=== PATIENT | male | born 1990 | race American Indian/Alaskan Native ===

== ENCOUNTER 2020-10-16 15:33 | Emergency (ER) | payer MEDICAID ==
[2020-10-16 16:15] VITALS: BP 152/82
[2020-10-16] MEDS ORDERED: IBUPROFEN 800 MG TAB PO ONE (16:18)
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
[2020-10-16] MEDS ORDERED: LIDOCAINE (1%) 10 MG/1 ML VIAL 20 ML MDV INFILTRATI NR (16:30)
== END 2020-10-16 19:45 | disposition home or self-care (01) ==
LOC: ED 15:33
DX: S81.811A Laceration without foreign body, right lower leg, initial encounter (principal); J45.909 Unspecified asthma, uncomplicated; G40.909 Epilepsy, unspecified, not intractable, without status epilepticus; Z79.899 Other long term (current) drug therapy; Y08.89XA Assault by other specified means, initial encounter; Y93.89 Activity, other specified; Y92.69 Other specified industrial and construction area as the place of occurrence of the external cause; Y99.8 Other external cause status
CPT/HCPCS: 99282

== ENCOUNTER 2020-12-12 00:34 | Emergency (ER) | payer MEDICAID ==
--- NOTE | 2020-12-12 01:40 | Emergency Department Report ---
ED Psych HPI - General Chief Complaint: Seizure Stated Complaint: HEADACHE Time Seen by Provider: 12/12/20 01:35 Source: patient, EMS Mode of arrival: Ambulatory - History of Present Illness Initial Comments: Patient is a 30-year-old male who presents emergency room with complaints of headache, seizure activity and suicidal thoughts and depression. Patient states his headache started about an hour ago. Patient states headache is severe. Patient states he has history of headaches after a seizure. Patient states he had a seizure approximately an hour ago. Patient states his housemates called EMS. Patient states he is noncompliant with his seizure medication. Patient states he ran out of his [employer] 3 months ago. Patient states his headache is a 10 out of 10. Patient dates is better with rest and worse with light and movement. Patient states she is having a migraine. Patient dates that history of migraines. Patient states she is also having suicidal thoughts. Patient rates want to put a hole in his head. Patient states been feeling depressed for several months. Patient denies recent travel. Patient denies recent international travel. Patient denies exposure to the novel coronavirus. Patient denies sick contacts. Patient denies fever and chills. Patient denies cough. Patient denies diarrhea. Patient denies coming in contact with anybody with symptoms of the novel coronavirus. MD Complaint: suicidal ideation, feels depressed -: Sudden Associated Psychiatric Symptoms: depression, suicidal ideation, racing thoughts History of same: No Quality: constant Improves With: none Worsens With: none Associated Symptoms: headache, other (Seizure) If Self Harm: admits thoughts of, has plan - Related Data Previous Rx's Medication Instructions Recorded Last Taken Type Ibuprofen [Motrin 800 MG tab] 800 mg PO Q8HR PRN #30 tablet 10/16/20 Unknown Rx Mupirocin [Bactroban 2%] 1 applic TP TID #1 tube 12/15/20 Unknown Rx levETIRAcetam [Keppra TAB] 1,000 mg PO BID #60 tab 12/15/20 Unknown Rx Allergies Allergy/AdvReac Type Severity Reaction Status Date / Time No Known Allergies Allergy Unverified 10/16/20 16:10 ED Review of Systems ROS: Stated complaint: HEADACHE Other details as noted in HPI Constitutional: denies: chills, fever Eyes: denies: eye pain, eye discharge, vision change ENT: denies: ear pain, throat pain Respiratory: denies: cough, shortness of breath, wheezing Cardiovascular: denies: chest pain, palpitations Endocrine: no symptoms reported Gastrointestinal: denies: abdominal pain, nausea, diarrhea Genitourinary: denies: urgency, dysuria Musculoskeletal: denies: back pain, joint swelling, arthralgia Skin: denies: rash, lesions Neurological: as per HPI, headache. denies: weakness, paresthesias Psychiatric: as per HPI, depression, suicidal thoughts. denies: anxiety Hematological/Lymphatic: denies: easy bleeding, easy bruising ED Past Medical Hx - Past Medical History Previous Medical History?: Yes Hx Seizures: Yes Hx Asthma: Yes - Surgical History Past Surgical History?: Yes Additional Surgical History: STOMACH - Family History Family history: no significant - Social History Smoking Status: Never Smoker Substance Use Type: Marijuana - Medications Home Medications: Home Medications Medication Instructions Recorded Confirmed Last Taken Type Ibuprofen [Motrin 800 MG tab] 800 mg PO Q8HR PRN #30 tablet 10/16/20 Unknown Rx Mupirocin [Bactroban 2%] 1 applic TP TID #1 tube 12/15/20 Unknown Rx levETIRAcetam [Keppra TAB] 1,000 mg PO BID #60 tab 12/15/20 Unknown Rx ED Physical Exam - General Limitations: No Limitations General appearance: alert, in no apparent distress - Head Head exam: Present: atraumatic, normocephalic - Eye Eye exam: Present: normal appearance, PERRL Pupils: Present: normal accommodation - ENT ENT exam: Present: mucous membranes moist - Neck Neck exam: Present: normal inspection - Respiratory Respiratory exam: Present: normal lung sounds bilaterally. Absent: respiratory distress - Cardiovascular Cardiovascular Exam: Present: regular rate, normal rhythm. Absent: systolic murmur, diastolic murmur, rubs, gallop - GI/Abdominal GI/Abdominal exam: Present: soft, normal bowel sounds - Rectal Rectal exam: Present: deferred - Extremities Exam Extremities exam: Present: normal inspection - Back Exam Back exam: Present: normal inspection - Neurological Exam Neurological exam: Present: alert, oriented X3, CN II-XII intact - Psychiatric Psychiatric exam: Present: depressed, suicidal ideation - Skin Skin exam: Present: warm, dry, intact, normal color. Absent: rash ED Course Vital Signs 12/12/20 12/12/20 12/12/20 00:52 01:34 01:42 Temperature 98.3 F Pulse Rate 83 Respiratory 18 18 Rate Blood Pressure 131/82 Blood Pressure [Right] O2 Sat by Pulse 95 94 98 Oximetry 12/12/20 12/12/20 12/12/20 02:00 03:00 03:33 Temperature Pulse Rate 75 Respiratory 15 13 18 Rate Blood Pressure 116/71 105/61 Blood Pressure [Right] O2 Sat by Pulse 97 99 Oximetry 12/12/20 12/12/20 12/12/20 04:00 04:03 05:00 Temperature Pulse Rate 63 Respiratory 12 18 11 L Rate Blood Pressure 114/74 107/62 Blood Pressure [Right] O2 Sat by Pulse 99 99 Oximetry 12/12/20 12/12/20 12/12/20 06:01 07:00 20:21 Temperature 97.6 F Pulse Rate 54 L 56 L Respiratory 9 L 18 Rate Blood Pressure 114/74 121/79 Blood Pressure 127/89 [Right] O2 Sat by Pulse 98 96 100 Oximetry 12/12/20 12/13/20 12/13/20 20:22 03:55 08:50 Temperature 97.8 F Pulse Rate 68 Respiratory 18 18 18 Rate Blood Pressure Blood Pressure 119/76 [Right] O2 Sat by Pulse 100 98 98 Oximetry 12/13/20 12/13/20 12/14/20 20:00 21:43 08:27 Temperature 97.9 F 97.9 F Pulse Rate 67 78 Respiratory 18 18 20 Rate Blood Pressure 142/88 Blood Pressure 123/74 [Right] O2 Sat by Pulse 99 97 Oximetry 12/14/20 12/15/20 12/15/20 20:06 00:06 02:01 Temperature 97.8 F 97.6 F Pulse Rate 64 16 L Respiratory 16 18 16 Rate Blood Pressure Blood Pressure 112/72 121/87 [Right] O2 Sat by Pulse 100 97 100 Oximetry 12/15/20 08:00 Temperature 97.6 F Pulse Rate 70 Respiratory 18 Rate Blood Pressure Blood Pressure 140/78 [Right] O2 Sat by Pulse 98 Oximetry - Reevaluation(s) Reevaluation #1: Patient placed on 1013. 12/12/20 01:40 Reevaluation #2: Patient resting in his room. Patient states his headache has improved. Patient is medically cleared. Patient will remain in the ER as an ER hold until the patient is cleared by our psychiatry team. Patient final disposition will come from our psychiatry mental health team. 12/12/20 04:19 ED Medical Decision Making - Lab Data Result diagrams: 12/12/20 01:24 12/12/20 01:24 - Medical Decision Making Patient is a 30-year-old male who presents emergency with seizure activity, headache and complaints of suicidal ideations. Patient states he has a plan. Patient has a known seizure history and is noncompliant with his seizure medications. Patient given Keppra. Patient given Toradol and Phenergan and the patient's headache improved. Patient is medically cleared. Patient had labs done which were essentially unremarkable. Patient final disposition will come from our psychiatry team. - Differential Diagnosis Seizure, headache, migraine, noncompliance, suicidal ideations. Critical care attestation.: If time is entered above; I have spent that time in minutes in the direct care of this critically ill patient, excluding procedure time. ED Disposition Clinical Impression: Seizure, Noncompliance Headache Qualifiers: Headache type: unspecified Headache chronicity pattern: acute headache Intractability: not intractable Qualified Code(s): R51.9 - Headache, unspecified Wound of right leg Qualifiers: Encounter type: subsequent encounter Qualified Code(s): S81.801D - Unspecified open wound, right lower leg, subsequent encounter Disposition: TO HOME OR SELFCARE Is pt being admited?: No Does the pt Need Aspirin: No Condition: Good Instructions: Wound Care, Adult, Seizure, Adult Additional Instructions: Recommend the patient not drive or operate motor vehicles for 6 months, until cleared to do so by a primary care doctor or neurologist. Recommend follow-up with a primary care doctor or neurologist within the next week. Recommend that patient wash right lower extremity wound with gentle soap and water once every 12-24 hours. Apply warm compresses as often as as needed. Apply the Bactroban ointment as directed. Take the Keppra medication as directed. Follow-up with your outpatient mental health professional or psychiatrist as instructed. Please continue outpatient psychiatric medications as directed by our psychiatry team. Please return to the emergency room right away with new pain, worsened pain, migration of pain, projectile vomiting, change in mental status, confusion, inability to tolerate liquid feeds, new, worsened or different symptoms not present on the initial emergency room evaluation. Prescriptions: Mupirocin [Bactroban 2%] 1 applic TP TID #1 tube levETIRAcetam [Keppra TAB] 1,000 mg PO BID #60 tab Referrals: [facility] [Provider Group] - 3-5 Days [facility] [Outside] - 3-5 Days RADHA PATEL MD [Staff Physician] - 3-5 Days Time of Disposition: 05:30
[2020-12-12 02:00] LABS: BUN/Creatinine Ratio 11; Blood Urea Nitrogen 13 mg/dL (9-20); Calcium 9.2 mg/dL (8.4-10.2); Hemolysis Index 5
[2020-12-12 02:07] LABS: Bilirubin,Urine NEG (Negative); Blood,Urine NEG (Negative); Color,Urine Yellow (Yellow); Protein,Urine <15 mg/dL mg/dL (Negative); RBC,Urine < 1.0 /HPF (0.0-6.0); WBC,Urine < 1.0 /HPF (0.0-6.0)
[2020-12-12 02:09] LABS: Amphetamine Screen,Urine PRESUMPTIVE NEGATIVE; Benzodiazepines Screen,Urine PRESUMPTIVE NEGATIVE; Cannabinoid Screen,Urine PRESUMPTIVE POSITIVE; Cocaine Screen,Urine PRESUMPTIVE NEGATIVE; Methadone Screen,Urine PRESUMPTIVE NEGATIVE; Opiate Screen,Urine PRESUMPTIVE NEGATIVE
[2020-12-12 02:10] LABS: Basophils # (Auto) 0.1 K/mm3 (0.0-0.1); Eosinophils # (Auto) 0.1 K/mm3 (0.0-0.4); Eosinophils % (Auto) 0.8 % (0.0-4.3); Monocytes # (Auto) 1.1 K/mm3 (0.0-0.8); Monocytes % (Auto) 12.2 % (0.0-7.3)
[2020-12-12 02:53] LABS: Hematocrit 38.3 % (35.5-45.6); Hemoglobin 12.2 gm/dl (11.8-15.2); Red Blood Count 5.64 M/mm3 (3.65-5.03)
[2020-12-12 02:54] LABS: Basophils % (Auto) 0.7 % (0.0-1.8); Lymphocytes % (Auto) 42.4 % (13.4-35.0); Mean Corpuscular HGB Conc 32 % (32-34); Mean Corpuscular Volume 68 fl (84-94); Platelet Count 376 K/mm3 (140-440); Red Cell Distribution Width 18.8 % (13.2-15.2)
[2020-12-12] MEDS ORDERED: KETOROLAC 30 MG/1 ML INJ IV ONE (03:01)
[2020-12-12] MEDS ORDERED: PROMETHAZINE 25 MG TAB PO ONE (03:01)
[2020-12-12] MEDS ORDERED: levETIRAcetam 1000 MG/NS 0.75% 1,000 MG/100 ML BAG IV ONE (03:01)
[2020-12-12] MEDS ORDERED: ZIPRASIDONE MESYLATE 20 MG VIAL IM ONE (04:17)
[2020-12-12] MEDS ORDERED: WATER FOR INJ Sterile (PF) 10 ML ONE (04:19)
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
--- NOTE | 2020-12-13 10:27 | Emergency Department Report ---
Blank Doc - Documentation Documentation: I saw this patient back in room #12, in the psychiatric area. He is currently here for suicidal ideations, depression, and seizure-like activity yesterday. He was given a loading dose of Keppra by the emergency physician at that time. The patient says that he takes Keppra 1000 mg twice daily so I am restarting this medication for him. He also complains of a small wound to the right lower leg. He says that there was some yellowish drainage from it yesterday and he had concern for infection. I do see a small ulcerating wound to the right mid anterior tib-fib. No current drainage and no surrounding erythema. However, he would be placed on a short course of antibiotics. We discussed keeping it clean with soap and water and then making sure it remains dry. He was seen today by the psychiatric midlevel provider and they recommend continuation of the 1013 for inpatient stabilization. Patient says that he is on Seroquel at night 400 mg. I am waiting to see what medications are started by the psychiatric team. No events overnight signed out to the emergency department psychiatric nurse. No new labs ordered today. Patient's Covid test was negative yesterday. He is awaiting placement and we will continue to monitor. Vital Signs - 24 hr 12/12/20 12/12/20 12/13/20 20:21 20:22 03:55 Temperature 97.6 F Pulse Rate 56 L Respiratory 18 18 18 Rate Blood Pressure 127/89 [Right] O2 Sat by Pulse 100 100 98 Oximetry 12/13/20 08:50 Temperature 97.8 F Pulse Rate 68 Respiratory 18 Rate Blood Pressure 119/76 [Right] O2 Sat by Pulse 98 Oximetry
[2020-12-13] MEDS: levETIRAcetam 500 MG TAB PO SCH ×2 (12:59→21:45)
[2020-12-13] MEDS: SULFAMETHOXAZOLE/TRIMETHOPRIM 800/160MG DS TAB PO SCH ×2 (12:59→21:45)
[2020-12-13] MEDS ORDERED: LORazepam 1 MG TAB PO ONE (21:25)
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
--- NOTE | 2020-12-14 10:00 | Emergency Department Report ---
Blank Doc - Documentation Documentation: Patient is here for depression and suicidal ideations. He was seen again today by the psychiatric team who continue to feel that the patient requires inpatient stabilization. He has been started on Seroquel 100 mg twice daily by the psychiatric midlevel provider. The emergency department psychiatric nurse says that there have been no events overnight that were signed out to her. He is receiving the Keppra and the Bactrim that I prescribed yesterday. The vital signs listed below are reassuring. No new labs today. We will continue to monitor while he is in the emergency department. Vital Signs 12/12/20 12/12/20 12/12/20 00:52 01:34 01:42 Temperature 98.3 F Pulse Rate 83 Respiratory 18 18 Rate Blood Pressure 131/82 Blood Pressure [Right] O2 Sat by Pulse 95 94 98 Oximetry 12/12/20 12/12/20 12/12/20 02:00 03:00 03:33 Temperature Pulse Rate 75 Respiratory 15 13 18 Rate Blood Pressure 116/71 105/61 Blood Pressure [Right] O2 Sat by Pulse 97 99 Oximetry 12/12/20 12/12/20 12/12/20 04:00 04:03 05:00 Temperature Pulse Rate 63 Respiratory 12 18 11 L Rate Blood Pressure 114/74 107/62 Blood Pressure [Right] O2 Sat by Pulse 99 99 Oximetry 12/12/20 12/12/20 12/12/20 06:01 07:00 20:21 Temperature 97.6 F Pulse Rate 54 L 56 L Respiratory 9 L 18 Rate Blood Pressure 114/74 121/79 Blood Pressure 127/89 [Right] O2 Sat by Pulse 98 96 100 Oximetry 12/12/20 12/13/20 12/13/20 20:22 03:55 08:50 Temperature 97.8 F Pulse Rate 68 Respiratory 18 18 18 Rate Blood Pressure Blood Pressure 119/76 [Right] O2 Sat by Pulse 100 98 98 Oximetry 12/13/20 12/13/20 12/14/20 20:00 21:43 08:27 Temperature 97.9 F 97.9 F Pulse Rate 67 78 Respiratory 18 18 20 Rate Blood Pressure 142/88 Blood Pressure 123/74 [Right] O2 Sat by Pulse 99 97 Oximetry
[2020-12-14] MEDS: QUEtiapine 100 MG TAB PO SCH ×2 (12:20→22:16)
[2020-12-14] MEDS: levETIRAcetam 500 MG TAB PO SCH ×2 (12:20→22:16)
[2020-12-14] MEDS: SULFAMETHOXAZOLE/TRIMETHOPRIM 800/160MG DS TAB PO SCH ×2 (12:20→22:16)
[2020-12-15 08:10] VITALS: BP 140/78
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
--- NOTE | 2020-12-15 10:40 | Event Note ---
Date: 12/15/20 The patient was evaluated in the emergency department for symptoms described in the history of present illness. He/she was evaluated in the context of the global COVID-19 pandemic, which necessitated consideration that the patient might be at risk for infection with the virus that causes COVID-19. Institutional protocols and algorithms that pertain to the evaluation of patients at risk for COVID-19 are in a state of rapid change based on information released by regulatory bodies including the CDC and federal and state organizations. These policies and algorithms were followed during the patient's care in the emergency department. Please note that these policies, procedures and recommendations changed on a rapid basis. Patient seen, evaluated, and examined. Patient endorses no acute medical complaints. The patient is awake, alert, oriented, clinically sober, ambulates with a steady gait, and endorses readiness for discharge. The patient has been deemed medically cleared on their initial ER evaluation. The psychiatric team has recommended the patient does not require 1013 status at this time. Nursing team indicates that the patient has not had any issues this morning, laboratories and vital signs are reviewed and appreciated. Patient's right lower extremity wound is reviewed and appreciated by myself. There appears to be a chronic wound, without redness, pus or streaking, and there is some granulation tissue. This is nontender at this time. It is my pain that this wound is not acutely infected, does not require oral antibiotics. Warm compresses, topical Bactroban, follow-up with outpatient primary care, wound clinic would be appropriate. Patient states she is able to walk home. Vital Signs 12/12/20 12/12/20 12/12/20 00:52 01:34 01:42 Temperature 98.3 F Pulse Rate 83 Respiratory 18 18 Rate Blood Pressure 131/82 Blood Pressure [Right] O2 Sat by Pulse 95 94 98 Oximetry 12/12/20 12/12/20 12/12/20 02:00 03:00 03:33 Temperature Pulse Rate 75 Respiratory 15 13 18 Rate Blood Pressure 116/71 105/61 Blood Pressure [Right] O2 Sat by Pulse 97 99 Oximetry 12/12/20 12/12/20 12/12/20 04:00 04:03 05:00 Temperature Pulse Rate 63 Respiratory 12 18 11 L Rate Blood Pressure 114/74 107/62 Blood Pressure [Right] O2 Sat by Pulse 99 99 Oximetry 12/12/20 12/12/2012/12/21 06:01 07:00 20:21 Temperature 97.6 F Pulse Rate 54 L 56 L Respiratory 9 L 18 Rate Blood Pressure 114/74 121/79 Blood Pressure 127/89 [Right] O2 Sat by Pulse 98 96 100 Oximetry 12/12/20 12/13/20 12/13/20 20:22 03:55 08:50 Temperature 97.8 F Pulse Rate 68 Respiratory 18 18 18 Rate Blood Pressure Blood Pressure 119/76 [Right] O2 Sat by Pulse 100 98 98 Oximetry 12/13/20 12/13/20 12/14/20 20:00 21:43 08:27 Temperature 97.9 F 97.9 F Pulse Rate 67 78 Respiratory 18 18 20 Rate Blood Pressure 142/88 Blood Pressure 123/74 [Right] O2 Sat by Pulse 99 97 Oximetry 12/14/20 12/15/20 12/15/20 20:06 00:06 02:01 Temperature 97.8 F 97.6 F Pulse Rate 64 16 L Respiratory 16 18 16 Rate Blood Pressure Blood Pressure 112/72 121/87 [Right] O2 Sat by Pulse 100 97 100 Oximetry 12/15/20 08:00 Temperature 97.6 F Pulse Rate 70 Respiratory 18 Rate Blood Pressure Blood Pressure 140/78 [Right] O2 Sat by Pulse 98 Oximetry Lab Results 12/12/20 12/12/20 12/12/20 Range/Units 01:24 01:24 01:24 WBC (4.5-11.0) K/mm3 RBC (3.65-5.03) M/mm3 Hgb (11.8-15.2) gm/dl Hct (35.5-45.6) % MCV (84-94) fl MCH (28-32) pg MCHC (32-34) % RDW (13.2-15.2) % Plt Count (140-440) K/mm3 Lymph % (Auto) (13.4-35.0) % Wolfe % (Auto) (0.0-7.3) % Eos % (Auto) (0.0-4.3) % Baso % (Auto) (0.0-1.8) % Lymph # (Auto) (1.2-5.4) K/mm3 Wolfe # (Auto) (0.0-0.8) K/mm3 Eos # (Auto) (0.0-0.4) K/mm3 Baso # (Auto) (0.0-0.1) K/mm3 Seg Neutrophils % (40.0-70.0) % Seg Neutrophils # (1.8-7.7) K/mm3 Sodium 136 L (137-145) mmol/L Potassium 4.7 (3.6-5.0) mmol/L Chloride 98.6 (98-107) mmol/L Carbon Dioxide 23 (22-30) mmol/L Anion Gap 19 mmol/L BUN 13 (9-20) mg/dL Creatinine 1.2 (0.8-1.3) mg/dL Estimated GFR > 60 ml/min BUN/Creatinine Ratio 11 % Glucose 108 H (75-100) mg/dL Calcium 9.2 (8.4-10.2) mg/dL Urine Color (Yellow) Urine Turbidity (Clear) Urine pH (5.0-7.0) Ur Specific [place] (1.003-1.030) Urine Protein (Negative) mg/dL Urine Glucose (UA) (Negative) mg/dL Urine Ketones (Negative) mg/dL Urine Blood (Negative) Urine Nitrite (Negative) Urine Bilirubin (Negative) Urine Urobilinogen (<2.0) mg/dL Ur Leukocyte Esterase (Negative) Urine WBC (Auto) (0.0-6.0) /HPF Urine RBC (Auto) (0.0-6.0) /HPF U Epithel Cells (Auto) (0-13.0) /HPF Salicylates < 0.3 L (2.8-20.0) mg/dL Urine Opiates Screen Urine Methadone Screen Acetaminophen 5.0 L (10.0-30.0) ug/mL Ur Barbiturates Screen Ur Phencyclidine Scrn Ur Amphetamines Screen U Benzodiazepines Scrn Urine Cocaine Screen U Marijuana (THC) Screen Drugs of Abuse Note Plasma/Serum Alcohol (0-0.07) % Coronavirus (PCR) (Negative) 12/12/20 12/12/20 12/12/20 Range/Units 01:24 01:24 09:45 WBC 9.3 (4.5-11.0) K/mm3 RBC 5.64 H (3.65-5.03) M/mm3 Hgb 12.2 (11.8-15.2) gm/dl Hct 38.3 (35.5-45.6) % MCV 68 L (84-94) fl MCH 22 L (28-32) pg MCHC 32 (32-34) % RDW 18.8 H (13.2-15.2) % Plt Count 376 (140-440) K/mm3 Lymph % (Auto) 42.4 H (13.4-35.0) % Wolfe % (Auto) 12.2 H (0.0-7.3) % Eos % (Auto) 0.8 (0.0-4.3) % Baso % (Auto) 0.7 (0.0-1.8) % Lymph # (Auto) 4.0 (1.2-5.4) K/mm3 Wolfe # (Auto) 1.1 H (0.0-0.8) K/mm3 Eos # (Auto) 0.1 (0.0-0.4) K/mm3 Baso # (Auto) 0.1 (0.0-0.1) K/mm3 Seg Neutrophils % 43.9 (40.0-70.0) % Seg Neutrophils # 4.1 (1.8-7.7) K/mm3 Sodium (137-145) mmol/L Potassium (3.6-5.0) mmol/L Chloride (98-107) mmol/L Carbon Dioxide (22-30) mmol/L Anion Gap mmol/L BUN (9-20) mg/dL Creatinine (0.8-1.3) mg/dL Estimated GFR ml/min BUN/Creatinine Ratio % Glucose (75-100) mg/dL Calcium (8.4-10.2) mg/dL Urine Color (Yellow) Urine Turbidity (Clear) Urine pH (5.0-7.0) Ur Specific [place] (1.003-1.030) Urine Protein (Negative) mg/dL Urine Glucose (UA) (Negative) mg/dL Urine Ketones (Negative) mg/dL Urine Blood (Negative) Urine Nitrite (Negative) Urine Bilirubin (Negative) Urine Urobilinogen (<2.0) mg/dL Ur Leukocyte Esterase (Negative) Urine WBC (Auto) (0.0-6.0) /HPF Urine RBC (Auto) (0.0-6.0) /HPF U Epithel Cells (Auto) (0-13.0) /HPF Salicylates (2.8-20.0) mg/dL Urine Opiates Screen Urine Methadone Screen Acetaminophen (10.0-30.0) ug/mL Ur Barbiturates Screen Ur Phencyclidine Scrn Ur Amphetamines Screen U Benzodiazepines Scrn Urine Cocaine Screen U Marijuana (THC) Screen Drugs of Abuse Note Plasma/Serum Alcohol < 0.01 (0-0.07) % Coronavirus (PCR) Negative (Negative) 12/12/20 12/12/20 Range/Units Unknown Unknown WBC (4.5-11.0) K/mm3 RBC (3.65-5.03) M/mm3 Hgb (11.8-15.2) gm/dl Hct (35.5-45.6) % MCV (84-94) fl MCH (28-32) pg MCHC (32-34) % RDW (13.2-15.2) % Plt Count (140-440) K/mm3 Lymph % (Auto) (13.4-35.0) % Wolfe % (Auto) (0.0-7.3) % Eos % (Auto) (0.0-4.3) % Baso % (Auto) (0.0-1.8) % Lymph # (Auto) (1.2-5.4) K/mm3 Wolfe # (Auto) (0.0-0.8) K/mm3 Eos # (Auto) (0.0-0.4) K/mm3 Baso # (Auto) (0.0-0.1) K/mm3 Seg Neutrophils % (40.0-70.0) % Seg Neutrophils # (1.8-7.7) K/mm3 Sodium (137-145) mmol/L Potassium (3.6-5.0) mmol/L Chloride (98-107) mmol/L Carbon Dioxide (22-30) mmol/L Anion Gap mmol/L BUN (9-20) mg/dL Creatinine (0.8-1.3) mg/dL Estimated GFR ml/min BUN/Creatinine Ratio % Glucose (75-100) mg/dL Calcium (8.4-10.2) mg/dL Urine Color Yellow (Yellow) Urine Turbidity Clear (Clear) Urine pH 7.0 (5.0-7.0) Ur Specific [place] 1.013 (1.003-1.030) Urine Protein <15 mg/dl (Negative) mg/dL Urine Glucose (UA) Neg (Negative) mg/dL Urine Ketones Neg (Negative) mg/dL Urine Blood Neg (Negative) Urine Nitrite Neg (Negative) Urine Bilirubin Neg (Negative) Urine Urobilinogen 4.0 (<2.0) mg/dL Ur Leukocyte Esterase Neg (Negative) Urine WBC (Auto) < 1.0 (0.0-6.0) /HPF Urine RBC (Auto) < 1.0 (0.0-6.0) /HPF U Epithel Cells (Auto) < 1.0 (0-13.0) /HPF Salicylates (2.8-20.0) mg/dL Urine Opiates Screen Presumptive negative Urine Methadone Screen Presumptive negative Acetaminophen (10.0-30.0) ug/mL Ur Barbiturates Screen Presumptive negative Ur Phencyclidine Scrn Presumptive negative Ur Amphetamines Screen Presumptive negative U Benzodiazepines Scrn Presumptive negative Urine Cocaine Screen Presumptive negative U Marijuana (THC) Screen Presumptive positive Drugs of Abuse Note Disclamer Plasma/Serum Alcohol (0-0.07) % Coronavirus (PCR) (Negative)
[2020-12-15] MEDS: levETIRAcetam 500 MG TAB PO SCH (11:00)
[2020-12-15] MEDS: QUEtiapine 100 MG TAB PO SCH (11:11)
[2020-12-15] MEDS: SULFAMETHOXAZOLE/TRIMETHOPRIM 800/160MG DS TAB PO SCH (11:11)
== END 2020-12-15 11:30 | disposition home or self-care (01) ==
LOC: ED 00:34
DX: R45.851 Suicidal ideations (principal); Z20.822 Contact with and (suspected) exposure to COVID-19; R51.9 Headache, unspecified; R56.9 Unspecified convulsions; J45.909 Unspecified asthma, uncomplicated; F12.10 Cannabis abuse, uncomplicated; Z91.19 Patient's noncompliance with other medical treatment and regimen; Z98.890 Other specified postprocedural states; Z79.1 Long term (current) use of non-steroidal anti-inflammatories (NSAID); Z79.899 Other long term (current) drug therapy
CPT/HCPCS: 36415; 80048; 80307; 81001; 85025; 96365; 96375; 99285; J1885; J1953; J3486; Q0169; U0003; 80320; G0480